=== PATIENT | male | born 1995 | race Two or more races ===

== ENCOUNTER 2018-07-23 22:46 | Emergency (ER) | payer SELFPAY ==
[~2018-07-23] VITALS: Ht 165.1 cm; Wt 3.7 kg
[2018-07-23 22:49] VITALS: BP 129/79
[2018-07-23] MEDS ORDERED: IBUP-1007 PO (23:47)
--- NOTE | 2018-07-23 23:47 | PHYS DOC ---
Past Medical History Past Medical History: No Pertinent History Past Surgical History: No Surgical History Alcohol Use: None Drug Use: None Adult General Chief Complaint Chief Complaint: MECHANICAL FALL HPI HPI Patient is a 23 year old male who presents with follow-up to stairs on to catch himself and the corner of the banister went into his left ribs. Patient states it hurts to take a deep breath in or to cough. He states he took some Tylenol earlier. Patient states that this happened at 2230 tonight. Review of Systems Review of Systems Constitutional: Denies fever or chills [] Eyes: Denies change in visual acuity, redness, or eye pain [] HENT: Denies nasal congestion or sore throat [] Respiratory: Denies cough or shortness of breath [] Cardiovascular: No additional information not addressed in HPI [] GI: Denies abdominal pain, nausea, vomiting, bloody stools or diarrhea [] : Denies dysuria or hematuria [] Musculoskeletal: Denies back pain or joint pain [] Integument: Denies rash or skin lesions [] Neurologic: Denies headache, focal weakness or sensory changes [] Endocrine: Denies polyuria or polydipsia [] All other systems were reviewed and found to be within normal limits, except as documented in this note. Allergies Allergies Allergies Coded Allergies Type Severity Reaction Last Updated Verified No Known Drug Allergies 07/23/18 No Physical Exam Physical Exam Constitutional: Well developed, well nourished, no acute distress, non-toxic appearance. [] HENT: Normocephalic, atraumatic, bilateral external ears normal, oropharynx moist, no oral exudates, nose normal. [] Eyes: PERRLA, EOMI, conjunctiva normal, no discharge. [] Neck: Normal range of motion, no tenderness, supple, no stridor. [] Cardiovascular:Heart rate regular rhythm, no murmur [] Lungs & Thorax: Bilateral breath sounds clear to auscultation [] Abdomen: Bowel sounds normal, soft, no tenderness, no masses, no pulsatile masses. [] Skin: Warm, dry, no erythema, no rash. [] Back: No tenderness, no CVA tenderness. [] Extremities: No tenderness, no cyanosis, no clubbing, ROM intact, no edema. [] Neurologic: Alert and oriented X 3, normal motor function, normal sensory function, no focal deficits noted. [] Psychologic: Affect normal, judgement normal, mood normal. [] Current Patient Data Vital Signs Vital Signs Date Time Temp Pulse Resp B/P (MAP) Pulse Ox O2 Delivery O2 Flow Rate FiO2 07/23/18 22:49 99.8 108 18 129/79 (96) 98 Room Air 99.8 EKG EKG [] Radiology/Procedures Radiology/Procedures Chest and left rib x-ray Impressions: No acute findings and was read by Kevin Course & Med Decision Making Course & Med Decision Making Patient is a 23 year old male who presents with follow-up to stairs on to catch himself and the corner of the banister went into his left ribs. Patient states it hurts to take a deep breath in or to cough. He states he took some Tylenol earlier. Patient states that this happened at 2230 tonight. Lungs are clear to auscultation lobes. Abdomen is soft and nontender. The left ribs are tender slightly towards the bottom of the rib cage but there is no deformity or bruising or swelling. Patient states he does not smoke and has no other medical history. Chest x-ray and left rib x-ray show no acute findings. Patient is told to use ibuprofen for pain that he pack or ice. Patient is told do not wrap anything around his rib cage as it could cause his lungs to not expand fully and cause pneumonia. He is alert and oriented. Skin is pink warm and dry. Vital signs are normal. [] Dragon Disclaimer Dragon Disclaimer This electronic medical record was generated, in whole or in part, using a voice recognition dictation system. Departure Departure Impression: Primary Impression: Rib pain Disposition: 01 HOME, SELF-CARE Condition: STABLE Referrals: NO PCP (PCP) Patient Instructions: Rib Contusion Additional Instructions: Follow up with primary care. Take ibuprofen for pain. Try using a heat pack or cold pack for pain. Scripts Ibuprofen (IBUPROFEN) 600 Mg Tablet 600 MG PO PRN Q6HRS PRN for INFLAMMATION, #30 TAB Prov: COLLETTE COSTA APRN 07/23/18 COLLETTE COSTA APRN Jul 23, 2018 23:47
--- NOTE | 2018-07-24 09:47 | RAD ---
Examination: RIBS LEFT, CHEST PA LATERAL History: rib pain post fall Comparison/Correlation: None Findings: Frontal and lateral views of chest were obtained. Total of 4 images of the left ribs were provided. Heart size and pulmonary vasculature are normal. No infiltrate, pleural effusion, or pneumothorax. Left ribs are intact. No left rib fracture or bony destruction. Impression: Normal left rib series. No active disease. Electronically signed by: Brian Guaman MD (07/24/2018 9:44 AM) [facility]
--- NOTE | 2018-07-24 09:47 | RAD ---
Examination: RIBS LEFT, CHEST PA LATERAL History: rib pain post fall Comparison/Correlation: None Findings: Frontal and lateral views of chest were obtained. Total of 4 images of the left ribs were provided. Heart size and pulmonary vasculature are normal. No infiltrate, pleural effusion, or pneumothorax. Left ribs are intact. No left rib fracture or bony destruction. Impression: Normal left rib series. No active disease. Electronically signed by: Brian Gauman MD (07/24/2018 9:44 AM) [facility]
== END 2018-07-24 00:12 | disposition home or self-care (01) ==
LOC: ER 22:46
DX: R07.81 Pleurodynia (principal); R05 Cough
CPT/HCPCS: 71046; 71100; 99284